=== PATIENT | male | born 1990 | race Caucasian/White ===

== ENCOUNTER 2018-03-29 01:54 | Inpatient (IN) | payer MEDICAID ==
--- NOTE | 2018-03-29 02:02 | C.PDOC ---
History Of Present Illness 27 year old male was seen and medically cleared at [facility]. Patient was accepted for transfer due to major depression by Dr. Thomas. Time Seen by Provider: 03/29/18 02:01 Chief Complaint (Nursing): Psychiatric Evaluation History Per: Patient, EMS History/Exam Limitations: no limitations Onset/Duration Of Symptoms: Days Current Symptoms Are (Timing): Still Present Suicide/Self Injury Attempted (Context): Other Modifying Factor(s): None Associated Symptoms: Depression, Suicidal Thoughts Involuntary Hold By: None Recent travel outside of the [place]: No Additional History Per: Patient, EMS, Other Past Medical History Reviewed: Historical Data, Nursing Documentation, Vital Signs Vital Signs: Last Vital Signs Temp 98.2 F 03/29/18 01:56 Pulse 70 03/29/18 01:56 Resp 16 03/29/18 01:56 BP 124/86 03/29/18 01:56 Pulse Ox 100 03/29/18 02:05 - Medical History PMH: Depression Surgical History: No Surg Hx Family History: States: Unknown Family Hx - Social History Hx Alcohol Use: No Hx Substance Use: No Review Of Systems Constitutional: Negative for: Fever, Chills Cardiovascular: Negative for: Chest Pain, Palpitations Respiratory: Negative for: Shortness of Breath Gastrointestinal: Negative for: Nausea, Vomiting Skin: Negative for: Rash Psych: Negative for: Depression, Suicidal ideation Physical Exam - Physical Exam Appears: Non-toxic, Other (depressed affect) Skin: Warm, Dry Head: Normacephalic Eye(s): bilateral: Normal Inspection Oral Mucosa: Moist Neck: Supple Chest: Symmetrical Cardiovascular: Rhythm Regular Respiratory: No Rales, No Rhonchi, No Wheezing Gastrointestinal/Abdominal: Soft, No Tenderness, No Guarding, No Rebound Extremity: Bilateral: Atraumatic, Normal Color And Temperature, Normal ROM Neurological/Psych: Oriented x3, Normal Speech Gait: Steady ED Course And Treatment O2 Sat by Pulse Oximetry: 100 (ON RA) Pulse Ox Interpretation: Normal Disposition Discussed With : Tameka Thomas Comment: accepted the pt on her service and took over the care at 2 AM Doctor Will See Patient In The: Hospital Counseled Patient/Family Regarding: Studies Performed, Diagnosis - Disposition Disposition: HOSPITALIZED Disposition Time: 02:02 Condition: FAIR Forms: [facility] (Swedish) - POA Present On Arrival: None - Clinical Impression Clinical Impression: Major depression - Scribe Statement The provider has reviewed the documentation as recorded by the Scribe Bar Hooker All medical record entries made by the Scribe were at my direction and personally dictated by me. I have reviewed the chart and agree that the record accurately reflects my personal performance of the history, physical exam, medical decision making, and the department course for this patient. I have also personally directed, reviewed, and agree with the discharge instructions and disposition. Decision To Admit - Pt Status Changed To: Hospital Disposition Of: Inpatient - Admit Certification Admit to Inpatient:: After my assessment, the patient will require hospitalization for at least two midnights. This is because of the severity of symptoms shown, intensity of services needed, and/or the medical risk in this patient being treated as an outpatient. - InPatient: Physician Admission Certification: I certify that this patient requires 2 or more midnights of care for the following reason:: After my assessment, the patient will require hospitalization for at least two midnights. This is because of the severity of symptoms shown, intensity of services needed, and/or the medical risk in this patient being treated as an outpatient. - . Bed Request Type: Psychiatry Admitting Physician: Tameka Thomas Patient Diagnosis: Major depression
--- NOTE | 2018-03-29 03:51 | PCM.BM ---
<Jerrod Stout - Last Filed: 03/29/18 03:49> Treatment Plan Problems - Problems identified on initial assessmt DEPRESSION Date Initiated: 03/29/18 Time Initiated: 02:55 Assessment reference: NA Status: Active SUICIDAL IDEATION Date Initiated: 03/29/18 Time Initiated: 02:55 Assessment reference: NA Status: Active ALCOHOL ABUSE Date Initiated: 03/29/18 Time Initiated: 02:55 Assessment reference: NA Status: Active Treatment assets and liabiliti Patient Assests: adapts well, cooperative, self-reliant, ADL independent, physically healthy, good support system, negotiates basic needs Patient Liabilities: relationship conflicts, substance abuse, legal issue - Milieu Protocol Maintain good personal hygiene: daily Encourage regular showers, daily Remind patient to perform daily oral care, daily Assist patient to perform ADL's Maintain personal safety: every shift Educate patient to report safety concerns to staff, every shift Monitor environment for contraband/sharps Medication safety: Monitor for expected outcome, potential side effects: every shift, Assess barriers to learning: every shift, Assess readiness for medication education: every shift <Gricelda Hernandez - Last Filed: 03/29/18 11:26> - Diagnosis (1) Major depression Status: Acute Interventions: 03/29/18 11:26 * Assess/adjust medications daily and /or as needed * See patient on an individual basis 7x/week to assess symptoms of depression * Monitor for side effects & effectiveness of medications * (2) Alcohol use disorder, severe, dependence Status: Acute Interventions: 03/29/18 11:27 * Assess 7x/week regarding severity of withdrawal * Educate regarding risks, benefits, side effects and alternatives of medications * Use Motivational Interviewing for abstinence * Use CBT for relapse prevention * Medication management for withdrawal symptoms * Encourage medication assisted treatment * <Candis Bettencourt - Last Filed: 03/29/18 13:42> Family Contact Family involvement: Family/SO is involved Family contact: Patient agrees to contact Family contact name: Orville Tinoco-father Family contacted how many times per week?: 1 - Goals for Treatment Patient goals for treatment: "I have to fix my relationship with my girlfriend. " Discharge/Continuing Care - Education Needs Education Needs: Patient Medication, Patient Coping Skills - Discharge Discharge Criteria: Tolerates medication w/o severe side effects, No longer exhibiting s/s of withdrawal, Reduction of target symptoms Discharge to:: Home, With Family - Treatment Team Participation Discussed with Family/SO: No Was Patient/Family/SO present at Treatment Team Meeting: Yes
[2018-03-29] MEDS: Multiple Vitamins Tab PO SCH (09:16)
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
[2018-03-30] MEDS: Multiple Vitamins Tab PO SCH (09:20)
[2018-03-30] MEDS ORDERED: Pneumococcal 23-Valent Vaccine IM ONE (10:00)
--- NOTE | 2018-03-31 06:29 | PCM.PYCHPN ---
Psychiatric Progress Note - Psychiatric Progress Note Patient seen today, length of contact: 15 min Patient Chief Complaint: I am feeling little better, I want to leave.' Problems Identified/Issues Discussed: Patient seen and evaluated, chart reviewed and discussed with the nurse. He still reports depressed mood and feelings of hopelessness and helplessness. Patient remained isolated, confined and withdrawn. Patient is still tearful and crying as his GF is not talking to him. He denies any withdrawal s/s. Patient is compliant with medications and denies any side effects. Symptoms are improving but need more time to stabilize. Support and psychoeducation given. Medication Change: Yes (increase remeron, increase neurontin) Medical Record Reviewed: Yes Mental Status Examination - Cognitive Function Orientation: Person, Place, Situation, Time Memory: Intact Attention: WNL Concentration: Poor Association: WNL Fund of Knowledge: Poor - Mood Mood: Depressed, Anxious - Affect Affect: Constricted, Depressed - Speech Speech: Soft - Formal Thought Process Formal Thought Process: No Impairment - Suicidal Ideation Suicidal Ideation: No - Homicidal Ideation Homicidal Ideation: No Goal/Treatment Plan - Goal/Treatment Plan Need for Continued Stay: Severe depression anxiety, Severe functional impairment Progress Toward Problem(s) and Goals/Treatment Plan: Major depressive disorder single episode severe without psychotic features Alcohol use disorder moderate Cocaine use disorder moderate -CBT -Psychoeducation -Supportive therapy, group therapy, individual therapy -Klonopin 0.5 mg PO BID -Ativan 1 mg po q6hr prn -Remeron 30 mg PO QHS -Neuronitn 300 mg PO TID -Start Zoloft 50 mg PO Q Daily -Trazodone 100 mg by mouth daily at bedtime - Smoking Cessation Smoking Cessation Initiated: No
[2018-03-31] MEDS: Multiple Vitamins Tab PO SCH (09:10)
--- NOTE | 2018-03-31 18:38 | PCM.PYCHPN ---
Psychiatric Progress Note - Psychiatric Progress Note Patient seen today, length of contact: 15 min Patient Chief Complaint: "I'm nit suicidal" Problems Identified/Issues Discussed: The pt is seen, chart reviewed, case discussed with staff. The pt refused to take his medication in AM. He stated that he was reacted after he had a breakup with his GF. He stated that he is thinking more clearly and he is not suicidal. Additionally, he stated that he would like to be d/c as soon as possible. Symptoms are improving but needs more time to stabilize. After care discussed, support and psychoeducation given. Medication Change: No Medical Record Reviewed: Yes Mental Status Examination - Cognitive Function Orientation: Person, Place, Situation, Time Memory: Intact Attention: WNL Concentration: Poor Association: WNL Fund of Knowledge: Poor Decription of patient's judgement and insights: improving/improving - Mood Mood: Depressed, Anxious - Affect Affect: Constricted, Depressed - Speech Speech: Appropriate, Soft - Formal Thought Process Formal Thought Process: No Impairment Psychotic Thoughts and Behaviors: denied - Suicidal Ideation Suicidal Ideation: No Plan: denied - Homicidal Ideation Homicidal Ideation: No Plan: denied Goal/Treatment Plan - Goal/Treatment Plan Need for Continued Stay: Severe depression anxiety, Severe functional impairment Progress Toward Problem(s) and Goals/Treatment Plan: Continue current treatment. Supportive therapy provided Psychoeducation provided Therapy in milieu Medication benefits and side effects discussed with the pt. He verbalized understanding and agree with the treatment plan. Estimated Date of D/C: 04/02/18 - Smoking Cessation Smoking Cessation Initiated: Yes
[2018-04-01] MEDS: Multiple Vitamins Tab PO SCH (09:09)
--- NOTE | 2018-04-02 01:35 | PCM.PYCHPN ---
Psychiatric Progress Note - Psychiatric Progress Note Patient seen today, length of contact: 15 min Patient Chief Complaint: I am feeling little better, I want to leave.' Problems Identified/Issues Discussed: Patient seen and evaluated, chart reviewed and discussed with the nurse. He still reports depressed mood and feelings of hopelessness and helplessness. Patient remained isolated, confined and withdrawn. Patient is still tearful and crying as his GF is not talking to him. He denies any withdrawal s/s. Patient is compliant with medications and denies any side effects. Symptoms are improving but need more time to stabilize. Support and psychoeducation given. Medication Change: Yes (start depakote) Medical Record Reviewed: Yes Mental Status Examination - Cognitive Function Orientation: Person, Place, Situation, Time Memory: Intact Attention: WNL Concentration: Poor Association: WNL Fund of Knowledge: Poor - Mood Mood: Depressed, Anxious - Affect Affect: Constricted, Depressed - Speech Speech: Appropriate, Soft - Formal Thought Process Formal Thought Process: No Impairment - Suicidal Ideation Suicidal Ideation: No - Homicidal Ideation Homicidal Ideation: No Goal/Treatment Plan - Goal/Treatment Plan Need for Continued Stay: Severe depression anxiety, Severe functional impairment Progress Toward Problem(s) and Goals/Treatment Plan: Major depressive disorder single episode severe without psychotic features Alcohol use disorder moderate Cocaine use disorder moderate -CBT -Psychoeducation -Supportive therapy, group therapy, individual therapy -Klonopin 0.5 mg PO BID -Ativan 1 mg po q6hr prn -Remeron 30 mg PO QHS -Neuronitn 300 mg PO TID -Start Zoloft 50 mg PO Q Daily -Trazodone 100 mg by mouth daily at bedtime Estimated Date of D/C: 04/02/18
[2018-04-02 06:45] VITALS: RESP 20
[2018-04-02] MEDS: Multiple Vitamins Tab PO SCH (09:13)
[2018-04-02] MEDS: Divalproex 250 mg DR Tab PO SCH ×2 (09:14→18:32)
--- NOTE | 2018-04-02 10:13 | PCM.PYCHPN ---
Psychiatric Progress Note - Psychiatric Progress Note Patient seen today, length of contact: 15 min Patient Chief Complaint: I am feeling better Problems Identified/Issues Discussed: Patient seen and evaluated, chart reviewed and discussed with the nurse. The patient reports a better mood and feels that he is getting better. He stated that he has been attending group activities and has been conversing more with the other patients. The patient notes that he knows that he is getting better because he has become more social. He is complaint with medications and denies any side effects. Medication Change: Yes (increase depakote) Medical Record Reviewed: Yes Mental Status Examination - Cognitive Function Orientation: Person, Place, Situation, Time Memory: Intact Attention: WNL Concentration: Poor Association: WNL Fund of Knowledge: Poor - Mood Mood: Depressed, Anxious - Affect Affect: Constricted, Depressed - Speech Speech: Appropriate, Soft - Formal Thought Process Formal Thought Process: No Impairment - Suicidal Ideation Suicidal Ideation: No - Homicidal Ideation Homicidal Ideation: No Goal/Treatment Plan - Goal/Treatment Plan Need for Continued Stay: Severe depression anxiety, Severe functional impairment Progress Toward Problem(s) and Goals/Treatment Plan: Major depressive disorder single episode severe without psychotic features Alcohol use disorder moderate Cocaine use disorder moderate -CBT -Psychoeducation -Supportive therapy, group therapy, individual therapy -DC Klonopin 0.5 mg PO BID -Ativan 1 mg po q6hr prn -Depakote 250 mg PO Daily -Depakote 500 mg PO QHS -Remeron 30 mg PO QHS -Neuronitn 300 mg PO TID -Trazodone 100 mg by mouth daily at bedtime Estimated Date of D/C: 04/02/18
[2018-04-03] MEDS: Multiple Vitamins Tab PO SCH (10:34)
[2018-04-03] MEDS: Divalproex 250 mg DR Tab PO SCH (10:34)
--- NOTE | 2018-04-03 14:35 | PCM.PYCHPN ---
Psychiatric Progress Note - Psychiatric Progress Note Patient seen today, length of contact: 15 min Patient Chief Complaint: I am feeling much better. Problems Identified/Issues Discussed: Patient seen, chart reviewed, case was discussed with the staff. Issues related to illness and treatment were discussed with the staff and the patient. Reported compliant with treatment with no adverse effects. Tolerating treatment very well. Patient reported feeling much better. Patient was calm and cooperative. Risks and benefits of medications were discussed with the patient. After clear discussed with patient. At the time of evaluation, patient was awake alert oriented x3, no delusions, no auditory hallucination or visual hallucinations, no suicidal or homicidal ideations. Medical Problems: None reported Diagnostic Results: Reviewed DSM 5 Symptoms Update: Improvement with treatment. Medication Change: No Medical Record Reviewed: Yes Mental Status Examination - Cognitive Function Orientation: Person, Place, Situation, Time Memory: Intact Attention: WNL Concentration: WNL Association: WN Fund of Knowledge: [facility] Decription of patient's judgement and insights: Fair - Mood Mood: Depressed (Much less than before) - Affect Affect: Other (Appropriate) - Speech Speech: Appropriate, Soft - Formal Thought Process Formal Thought Process: No Impairment Psychotic Thoughts and Behaviors: None - Suicidal Ideation Suicidal Ideation: No - Homicidal Ideation Homicidal Ideation: No Goal/Treatment Plan - Goal/Treatment Plan Need for Continued Stay: Remain at risks for inpatient hospitalization, Discharge may exacerbated symptoms, Severe functional impairment Progress Toward Problem(s) and Goals/Treatment Plan: Improving. Patient education. Supportive therapy. Continue treatment as before. Estimated Date of D/C: 04/05/18 - Smoking Cessation Smoking Cessation Initiated: No
[2018-04-03] MEDS: Divalproex 500 mg DR Tab PO SCH (17:31)
[2018-04-04] MEDS: Multiple Vitamins Tab PO SCH (09:16)
[2018-04-04] MEDS: Divalproex 250 mg DR Tab PO SCH (09:16)
[2018-04-04] MEDS: Divalproex 500 mg DR Tab PO SCH (17:21)
--- NOTE | 2018-04-04 17:35 | PCM.PYCHPN ---
Psychiatric Progress Note - Psychiatric Progress Note Patient seen today, length of contact: 15 min Patient Chief Complaint: I am feeling much better. Problems Identified/Issues Discussed: Patient seen, chart reviewed, case was discussed with the staff. Issues related to illness and treatment were discussed with the staff and the patient. Reported compliant with treatment with no adverse effects. Tolerating treatment very well. Patient reported feeling much better. Patient was calm and cooperative. Risks and benefits of medications were discussed with the patient. After care discussed with patient. At the time of evaluation, patient was awake alert oriented x3, no delusions, no auditory hallucination or visual hallucinations, no suicidal or homicidal ideations. Medical Problems: None reported Diagnostic Results: Reviewed DSM 5 Symptoms Update: Improving with treatment Medication Change: No Medical Record Reviewed: Yes Mental Status Examination - Cognitive Function Orientation: Person, Place, Situation, Time Memory: Intact Attention: WNL Concentration: WNL Association: WN Fund of Knowledge: [facility] Decription of patient's judgement and insights: Fair - Mood Mood: Neutral - Affect Affect: Other (Appropriate) - Speech Speech: Appropriate - Formal Thought Process Formal Thought Process: No Impairment Psychotic Thoughts and Behaviors: None - Suicidal Ideation Suicidal Ideation: No - Homicidal Ideation Homicidal Ideation: No Goal/Treatment Plan - Goal/Treatment Plan Need for Continued Stay: Remain at risks for inpatient hospitalization, Discharge may exacerbated symptoms, Severe functional impairment Progress Toward Problem(s) and Goals/Treatment Plan: Improving. Patient education. Supportive therapy. Continue treatment as before. Estimated Date of D/C: 04/05/18 - Smoking Cessation Smoking Cessation Initiated: No
[2018-04-05 06:29] VITALS: BP 104/63; PULSE 83; TEMP 97.5; O2SAT 100
[2018-04-05] MEDS: Multiple Vitamins Tab PO SCH (09:02)
[2018-04-05] MEDS: Divalproex 250 mg DR Tab PO SCH (09:02)
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
== END 2018-04-05 11:37 | disposition home or self-care (01) | DRG 885 ==
LOC: C.ER 01:54 → C.5E 02:03
PROVIDERS: ADMIT Psychiatry & Neurology Psychiatry; ATTEND Psychiatry & Neurology Psychiatry
PROC: GZHZZZZ Group Psychotherapy (ICD-10-PCS; principal; 2018-03-29)
PROC: GZ3ZZZZ Medication Management (ICD-10-PCS; 2018-03-29)
PROC: GZ56ZZZ Individual Psychotherapy, Supportive (ICD-10-PCS; 2018-03-29)
DX: F32.2 Major depressive disorder, single episode, severe without psychotic features (principal); F14.20 Cocaine dependence, uncomplicated; R45.851 Suicidal ideations; F10.20 Alcohol dependence, uncomplicated; Z79.899 Other long term (current) drug therapy